=== PATIENT | female | born 2000 | race Caucasian/White ===

== ENCOUNTER 2018-09-24 01:00 | Emergency (ER) | payer MEDICAID ==
[~2018-09-24] VITALS: Ht 172.7 cm; Wt 113.0 kg
[~2018-09-24 01:00] MED LIST: ALBUTEROL HFA; CLON1TAB PO
[2018-09-24 01:26] LABS: BASOPHILS # (AUTO) 0.11 x10^3/uL (0-0.3); BASOPHILS % (AUTO) 1 % (0-1); EOSINOPHILS # (AUTO) 0.27 x10^3/uL (0-0.8); EOSINOPHILS % (AUTO) 3 % (1-7); LYMPHOCYTES # (AUTO) 2.55 x10^3/uL (1-6.1); LYMPHOCYTES % (AUTO) 29 % (22-44); MD NO; MEAN CORPUSCULAR HEMOGLOBIN 31.7 pg (27.0-34.8); MEAN CORPUSCULAR HGB CONC 33.8 g/dL (32.4-35.8); MEAN PLATELET VOLUME 9.3 fL (7.4-10.4); MONOCYTES # (AUTO) 0.52 x10^3/uL (0-1.4); MONOCYTES % (AUTO) 6 % (2-9); NEUTROPHILS # (AUTO) 5.39 x10^3/uL (1.8-8.0); NEUTROPHILS % (AUTO) 61 % (42-75); PLATELET COUNT 300 x10^3/uL (130-400); RED BLOOD COUNT 4.54 x10^6/uL (3.82-5.3); RED CELL DISTRIBUTION WIDTH 13.3 % (9.6-15.2)
[2018-09-24] MEDS ORDERED: DIPH,PERTUSS(ACELL),TET VAC/PF 0.5 ML IM-VACC ONE (01:30)
--- NOTE | 2018-09-24 01:30 | NUR ---
PT IN HOSPITAL GOWN. ROOM SECURED. PT PLAN TO CRASH CAR, BUT STATED SHE DIDN'T KNOW IF SHE COULD ACTUALLY DO IT. SITTER AT DOOR. WILL CONTINUE TO MONITOR.
[2018-09-24 01:38] LABS: ALBUMIN 3.7 g/dL (3.4-5.0); ANION GAP 7 mmol/L (5-15); CALCIUM 8.2 mg/dL (8.5-10.1); CHLORIDE 112 mmol/L (98-107); SALICYLATE LEVEL 3.5 mg/dL (2.8-20.0)
[2018-09-24 01:43] LABS: ALANINE AMINOTRANSFERASE 24 U/L (12-78); ALKALINE PHOSPHATASE 79 U/L (45-117); BILIRUBIN,TOTAL 0.2 mg/dL (0.2-1.0); CREATININE 0.72 mg/dL (0.55-1.02); TOTAL PROTEIN 6.7 g/dL (6.4-8.2)
[2018-09-24 01:44] LABS: ACETAMINOPHEN < 2 mcg/mL (10-30)
[2018-09-24 01:57] LABS: MICROSCOPIC NOT IND
[2018-09-24 01:59] LABS: CULTURE INDICATED? NO
--- NOTE | 2018-09-24 02:00 | NUR ---
PT IN HOSPITAL GOWN, ROOM SECURED WITH GARAGE DOORS DOWN. SITTER AT DOOR. PT COOPERATIVE WITH SI PROTOCOL. URINE SENT TO LAB. PT GIVEN WARM BLANKET
[2018-09-24 02:07] LABS: AMPHETAMINE SCREEN, URINE Negative (Negative); BARBITURATE SCREEN, URINE Negative (Negative); BENZODIAZEPINE SCREEN, URINE Negative (Negative); CANNABINOID SCREEN, URINE Negative (Negative); COCAINE SCREEN, URINE Negative (Negative); METHADONE SCREEN, URINE Negative (Negative); OPIATE SCREEN, URINE Negative (Negative)
--- NOTE | 2018-09-24 03:00 | NUR ---
ANNETTEI JELENA IN SPEAKING WITH PT. PT REMAINS CALM, SITTER AT DOOR.
[2018-09-24 04:10] VITALS: BP 144/86
--- NOTE | 2018-09-24 04:11 | NUR ---
FLOAT RN: PT DISCHRAGED. PT DENIES SI, HI. PT GIVEN A TAXI VOUCHER.
== END 2018-09-24 04:12 | disposition home or self-care (01) ==
LOC: ED 01:13
DX: S70.312A Abrasion, left thigh, initial encounter (principal); F32.9 Major depressive disorder, single episode, unspecified; F10.10 Alcohol abuse, uncomplicated; F17.200 Nicotine dependence, unspecified, uncomplicated; J45.909 Unspecified asthma, uncomplicated; X78.8XXA Intentional self-harm by other sharp object, initial encounter; Y93.89 Activity, other specified; Y92.89 Other specified places as the place of occurrence of the external cause; Y99.8 Other external cause status
CPT/HCPCS: 36415; 80053; 80307; 80329; 81003; 84443; 84703; 85025; 99284; G0480

== ENCOUNTER 2020-01-27 09:08 | Emergency (ER) | payer MEDICAID ==
[~2020-01-27] VITALS: Ht 172.7 cm; Wt 112.0 kg
[2020-01-27] MEDS ORDERED: ALBUTEROL/IPRATROPIUM 2.5MG/0.5MG, 3 ML NPPB ONE (09:30)
[2020-01-27] MEDS ORDERED: ACETAMINOPHEN 325 MG TABLET PO ONE (09:30)
[2020-01-27] MEDS ORDERED: ACETAMINOPHEN 325 MG TABLET ONE (09:33)
[2020-01-27] MEDS ORDERED: ALBUTEROL/IPRATROPIUM 2.5MG/0.5MG, 3 ML ONE (09:35)
--- NOTE | 2020-01-27 09:55 | NUR ---
PT REPORTS RELIEF FROM LUNG PAIN, CURRENTLY CP 12/10. HOB RECLINED PER PT REQUEST FOR COMFORT. SUPERVISOR ROVING, BP CUFF AND SPO2 IN PLACE. CALL LIGHT IN REACH. PT MEDICATED PER EMAR. SIDE RAILS UP.
--- NOTE | 2020-01-27 10:41 | NUR ---
PT RESTING WITH EYES CLOSED IN BED, REPORTS DECREASE IN CP. VSS. DISCUSSION WITH ERMD REGARDING PT'S STATUS. AWAITING FURTHER ORDERS.
--- NOTE | 2020-01-27 10:59 | NUR ---
REPORT TO KAIN FAROOQ.
--- NOTE | 2020-01-27 11:26 | NUR ---
TASK RN. PT OK FOR D/C PER ERMD. PT VERBALIZED UNDERSTANDING OF D/C INSTRUCTIONS.
[2020-01-27 11:27] VITALS: BP 127/76
== END 2020-01-27 11:40 | disposition home or self-care (01) ==
LOC: ED 11:29
DX: J45.30 Mild persistent asthma, uncomplicated (principal); J45.20 Mild intermittent asthma, uncomplicated; R07.89 Other chest pain; R00.0 Tachycardia, unspecified; Z90.89 Acquired absence of other organs
CPT/HCPCS: 93005; 94640; 99283; J7512

== ENCOUNTER 2020-02-09 06:10 | Emergency (ER) | payer MEDICAID ==
[~2020-02-09] VITALS: Ht 177.8 cm; Wt 110.9 kg
[2020-02-09 06:12] VITALS: BP 120/73
== END 2020-02-09 07:50 | disposition home or self-care (01) ==
LOC: ED 07:47
DX: S93.492A Sprain of other ligament of left ankle, initial encounter (principal); G89.11 Acute pain due to trauma; M25.572 Pain in left ankle and joints of left foot; J45.909 Unspecified asthma, uncomplicated; K21.9 Gastro-esophageal reflux disease without esophagitis; X58.XXXA Exposure to other specified factors, initial encounter; Y93.89 Activity, other specified; Y92.89 Other specified places as the place of occurrence of the external cause; Y99.8 Other external cause status
CPT/HCPCS: 99284

== ENCOUNTER 2020-04-05 01:43 | Emergency (ER) | payer SELFPAY ==
[~2020-04-05] VITALS: Ht 175.3 cm; Wt 100.0 kg
[2020-04-05 02:00] VITALS: BP 133/90
== END 2020-04-05 02:30 | disposition home or self-care (01) ==
LOC: ED 02:23
DX: F10.120 Alcohol abuse with intoxication, uncomplicated (principal); F12.10 Cannabis abuse, uncomplicated; F17.210 Nicotine dependence, cigarettes, uncomplicated; J45.909 Unspecified asthma, uncomplicated; Z90.89 Acquired absence of other organs; Y90.9 Presence of alcohol in blood, level not specified
CPT/HCPCS: 99283; 99406

== ENCOUNTER 2021-01-31 10:39 | Emergency (ER) | payer MEDICAID ==
[~2021-01-31] VITALS: Ht 177.8 cm; Wt 110.3 kg
--- NOTE | 2021-01-31 11:05 | NUR ---
ASSUMED CARE OF PT. SHE REPORTS SHE WAS DX MONDAY W/ COVID AND SINCE LAST NIGHT HAS BEEN HAVING BURNING IN HER LUNGS. SHE ALSO REPORTS HX OF ASTHMA. PT IN GOWN, AND HOOKED TO BP AND PULSE OX MONITOR. SASKIAN, CALL LIGHT W/IN REACH.
--- NOTE | 2021-01-31 11:13 | NUR ---
PT MOM CALLED, WENT TO ASK PT FOR PERMISSION TO SPEAK W/ HER MOM BUT PT STATED SHE WOULD CALL HER MOTHER.
[2021-01-31] MEDS ORDERED: SODIUM CHLORIDE FLUSH 10ML SYR IVF ONE (11:30)
[2021-01-31] MEDS ORDERED: SODIUM CHLORIDE 0.9% 1,000ML IVBOLUS ONE (11:30)
[2021-01-31 11:32] LABS: BASOPHILS % (AUTO) 1 % (0-1); EOSINOPHILS % (AUTO) 1 % (1-7); LYMPHOCYTES % (AUTO) 38 % (22-44); MEAN CORPUSCULAR HEMOGLOBIN 31.7 pg (27.0-34.8); MEAN PLATELET VOLUME 9.7 fL (7.4-10.4); MONOCYTES % (AUTO) 8 % (2-9); NEUTROPHILS % (AUTO) 52 % (42-75); PLATELET COUNT 148 x10^3/uL (130-400); RED BLOOD COUNT 4.83 x10^6/uL (3.82-5.3); RED CELL DISTRIBUTION WIDTH 13.8 % (9.6-15.2)
[2021-01-31 11:44] LABS: ALANINE AMINOTRANSFERASE 30 U/L (12-78); ALBUMIN 3.3 g/dL (3.4-5.0); CALCIUM 8.3 mg/dL (8.5-10.1); CREATININE 0.72 mg/dL (0.55-1.02)
[2021-01-31 11:48] LABS: ALKALINE PHOSPHATASE 66 U/L (45-117); BILIRUBIN,TOTAL 0.3 mg/dL (0.2-1.0); TOTAL PROTEIN 6.6 g/dL (6.4-8.2); TROPONIN I < 0.015 ng/mL (0.000-0.045)
--- NOTE | 2021-01-31 11:51 | NUR ---
PIV STARTED, IVF RUNNING PER AUG. VSDeanne, ZENA, CALL LIGHT W/IN REACH BEDSIDE
[2021-01-31 11:55] LABS: ANION GAP 7 mmol/L (5-15); CHLORIDE 111 mmol/L (98-107)
[2021-01-31] MEDS ORDERED: KETOROLAC 15 MG/1ML IVPush ONE (12:00)
[2021-01-31] MEDS ORDERED: KETOROLAC 30 MG/1 ML ONE (12:09)
--- NOTE | 2021-01-31 12:18 | NUR ---
PT MEDICATED PER AUG. VSS, NADN, CALL LIGHT W/IN REACH.
[2021-01-31 13:18] VITALS: BP 111/68
--- NOTE | 2021-01-31 13:18 | NUR ---
Patient given discharge instructions and they have confirmed that they understand the instructions. Patient ambulatory with steady gait.
== END 2021-01-31 13:30 | disposition home or self-care (01) ==
LOC: ED 12:58
DX: U07.1 COVID-19 (principal); J06.9 Acute upper respiratory infection, unspecified; R60.0 Localized edema; J40 Bronchitis, not specified as acute or chronic; J45.909 Unspecified asthma, uncomplicated
CPT/HCPCS: 36415; 71045; 80053; 83605; 84484; 85025; 93005; 96361; 96374; 99285; J1885; J7030